=== PATIENT | male | born 1965 | race Asian ===

== ENCOUNTER 2024-07-05 15:35 | Inpatient (IN) | payer BC ==
[~2024-07-05] VITALS: Ht 160 cm; Wt 62.7 kg
[2024-07-05 16:21] LABS: GLUCOMETER DEV NAME(LOC) ERT.6; GLUCOSE,POINT OF CARE 99 MG/DL (70-110)
[2024-07-05 16:48] LABS: EOSINOPHILS % (AUTO) 5.5 % (1.0-6.0); HEMATOCRIT 40.7 % (41-53); HEMOGLOBIN 13.5 g/dL (13.5-17.5); LYMPHOCYTES # (AUTO) 1.8 K/uL (1.0-4.8); LYMPHOCYTES % (AUTO) 29.2 % (22.0-44.0); MEAN CORPUSCULAR HEMOGLOBIN 31.3 pg (26.0-34.0); MEAN CORPUSCULAR HGB CONC 33.1 G/dL (31.0-37.0); MEAN CORPUSCULAR VOLUME 95 fL (80-100); MONOCYTES # (AUTO) 0.6 K/uL (0.1-1.0); MONOCYTES % (AUTO) 10.1 % (2.0-9.0); NEUTROPHILS # (AUTO) 3.4 K/uL (1.8-7.7); NEUTROPHILS % (AUTO) 54.2 % (40.0-70.0); PLATELET COUNT (AUTO) 326 K/uL (150-450); RED BLOOD CELL COUNT(AUTO) 4.31 MIL/uL (4.50-5.90); RED CELL DISTRIBUTION WIDTH 14.4 % (11.5-14.5); WHITE BLOOD COUNT (AUTO) 6.2 K/uL (4.5-11.0)
[2024-07-05 16:55] LABS: ANION GAP 7 mmol/L (8-16); CARBON DIOXIDE 29 mmol/L (22-29); CHLORIDE 107 mmol/L (98-107); CREATININE 0.86 mg/dL (0.60-1.30); GLOMERULAR FILTR. RATE CALC > 60 mL/min (>60); GLUCOSE,RANDOM 95 mg/dL (70-110); SODIUM SERUM 143 mmol/L (136-145); UREA NITROGEN, BLOOD 20 mg/dL (7-18)
[2024-07-05 17:03] LABS: LACTIC ACID 0.5 mmol/L (0.4-2.0)
[2024-07-05] MEDS: VANCOMYCIN 1.25 GM/WATER(PEG) 250 ML IV ONE (18:37)
[2024-07-05] MEDS ORDERED: BUPR-344 PO (19:48)
[2024-07-05] MEDS ORDERED: GABA-1216 PO (19:48)
[2024-07-05] MEDS ORDERED: METF-1211 PO (19:48)
[2024-07-05] MEDS ORDERED: ATOR20TA PO (19:48)
[2024-07-06 00:56] VITALS: BP 142/76; PULSE 62; RESP 19; TEMP 97.8; O2SAT 99
[2024-07-06 05:45] VITALS: BP 113/75; PULSE 68; RESP 18; TEMP 98.1; O2SAT 95
[2024-07-06] MEDS ORDERED: ZOLPIDEM TARTRATE 5 MG TABLET PO PRN (06:15)
[2024-07-06] MEDS ORDERED: ONDANSETRON HCL 4 MG/2 ML VIAL IVP PRN (06:15)
[2024-07-06] MEDS ORDERED: IPRATROPIUM BROMIDE 0.5 MG/2.5 ML NEB SOLUTION NEB PRN (06:15)
[2024-07-06] MEDS ORDERED: INSULIN LISPRO 100 UNITS/ML SQ PRN (06:15)
[2024-07-06] MEDS ORDERED: MAGNESIUM HYDROXIDE SUSPENSION 30 ML UDCUP PO PRN (06:15)
[2024-07-06] MEDS ORDERED: ALBUTEROL SULFATE 2.5 MG/0.5 ML NEB SOLUTION NEB PRN (06:15)
[2024-07-06] MEDS ORDERED: MORPHINE SULFATE 2 MG/ML SYRINGE IVP PRN (06:15)
[2024-07-06] MEDS ORDERED: OxyCODONE HCL/ACETAMINOPHEN 5-325 MG TABLET PO PRN (06:15)
[2024-07-06] MEDS ORDERED: DEXTROSE 50%-WATER 25 GM/50 ML SYRINGE IVP PRN (06:15)
[2024-07-06] MEDS ORDERED: ACETAMINOPHEN 325 MG TABLET PO PRN (06:15)
[2024-07-06] MEDS ORDERED: BISACODYL 10 MG RECTAL RECTAL SUPPOSITORY PR PRN (06:15)
[2024-07-06 07:47] LABS: ANION GAP 7 mmol/L (8-16); CALCIUM, TOTAL 8.4 mg/dL (8.8-10.5); CARBON DIOXIDE 27 mmol/L (22-29); CHLORIDE 110 mmol/L (98-107); CREATININE 0.71 mg/dL (0.60-1.30); GLOMERULAR FILTR. RATE CALC > 60 mL/min (>60); GLUCOSE,RANDOM 98 mg/dL (70-110); POTASSIUM 3.7 mmol/L (3.5-5.1); SODIUM SERUM 144 mmol/L (136-145); UREA NITROGEN, BLOOD 18 mg/dL (7-18)
[2024-07-06] MEDS: MetFORMIN HCL 500 MG TABLET PO SCH (08:00)
[2024-07-06] MEDS: VANCOMYCIN 1GM/WATER(PEG/NADA) 200 ML IV SCH (08:00)
[2024-07-06] MEDS: HEPARIN SODIUM,PORCINE 5,000 UNITS/ML VIAL SQ SCH (08:00)
[2024-07-06] MEDS: PANTOPRAZOLE SODIUM 40 MG/VIAL IVP SCH (09:00)
[2024-07-06] MEDS: BuPROPion HCL 75 MG TABLET PO SCH (09:00)
[2024-07-06 11:55] LABS: GLUCOMETER DEV NAME(LOC) 5S.1D; GLUCOSE,POINT OF CARE 96 MG/DL (70-110)
[2024-07-06] MEDS ORDERED: VANCOMYCIN 750 MG/WATER(PEG) 150 ML IV SCH (16:00)
[2024-07-06 17:06] VITALS: BP 132/88; PULSE 70; RESP 18; TEMP 98.2; O2SAT 96
[2024-07-06 19:41] LABS: GLUCOMETER DEV NAME(LOC) 4E.2; GLUCOSE,POINT OF CARE 98 MG/DL (70-110)
[2024-07-06 20:14] VITALS: BP 115/75; PULSE 72; RESP 20; TEMP 98.3; O2SAT 97
[2024-07-06] MEDS: GABAPENTIN 100 MG CAPSULE PO SCH (20:54)
[2024-07-06] MEDS: ATORVASTATIN CALCIUM 20 MG TABLET PO SCH (20:54)
[2024-07-06] MEDS: VANCOMYCIN HCL 750 MG in DEXTROSE 5%-WATER 250 ML IV SCH (23:24)
[2024-07-06] MEDS ORDERED: SODIUM CHLORIDE 0.9% 500 ML IV ONE (23:36)
[2024-07-07 04:30] VITALS: BP 104/69; PULSE 66; RESP 18; TEMP 97.9; O2SAT 96
[2024-07-07 07:41] LABS: ANION GAP 9 mmol/L (8-16); CALCIUM, TOTAL 8.6 mg/dL (8.8-10.5); CARBON DIOXIDE 26 mmol/L (22-29); CHLORIDE 107 mmol/L (98-107); CREATININE 0.72 mg/dL (0.60-1.30); GLOMERULAR FILTR. RATE CALC > 60 mL/min (>60); GLUCOSE,RANDOM 97 mg/dL (70-110); POTASSIUM 3.4 mmol/L (3.5-5.1); SODIUM SERUM 142 mmol/L (136-145); UREA NITROGEN, BLOOD 14 mg/dL (7-18)
[2024-07-07 08:21] LABS: GLUCOMETER DEV NAME(LOC) 5S.1D; GLUCOSE,POINT OF CARE 110 MG/DL (70-110)
[2024-07-07 08:21] LABS: GLUCOMETER DEV NAME(LOC) 6N.1B; GLUCOSE,POINT OF CARE 95 MG/DL (70-110)
[2024-07-07 08:21] LABS: GLUCOMETER DEV NAME(LOC) 5S.1D; GLUCOSE,POINT OF CARE 85 MG/DL (70-110)
[2024-07-07 09:35] VITALS: BP 121/77; PULSE 70; RESP 17; TEMP 97.6; O2SAT 96
[2024-07-07] MEDS ORDERED: SULF-261 PO (12:00)
[2024-07-07] MEDS: POTASSIUM CHLORIDE 20 MEQ ER TABLET PO ONE (12:21)
[2024-07-07 15:11] LABS: GLUCOMETER DEV NAME(LOC) 4E.2; GLUCOSE,POINT OF CARE 95 MG/DL (70-110)
== END 2024-07-07 14:00 | disposition home or self-care (01) | DRG 638 ==
LOC: EMS 15:35 → EDH 23:51 → 4E 07-06 00:40
PROVIDERS: ADMIT Hospitalist; ATTEND Hospitalist
DX: E11.628 Type 2 diabetes mellitus with other skin complications (principal); L03.116 Cellulitis of left lower limb; E11.40 Type 2 diabetes mellitus with diabetic neuropathy, unspecified; E11.51 Type 2 diabetes mellitus with diabetic peripheral angiopathy without gangrene; E78.00 Pure hypercholesterolemia, unspecified; F32.A Depression, unspecified; S91.002A Unspecified open wound, left ankle, initial encounter; X58.XXXA Exposure to other specified factors, initial encounter; Y93.89 Activity, other specified; Y92.89 Other specified places as the place of occurrence of the external cause; Y99.8 Other external cause status; Z87.891 Personal history of nicotine dependence
CPT/HCPCS: 80048; 82962; 83605; 85025; 87040; 96365; 99285; G0378; J1644; J2470; J3370; J7040; J7060